=== PATIENT | male | born 1960 | race Hispanic/Latino ===

== ENCOUNTER 2018-09-02 22:07 | Emergency (ER) | payer MEDICARE ==
[2018-09-02 22:19] VITALS: BP 145/94; PULSE 77; RESP 16; TEMP 99; O2SAT 98
--- NOTE | 2018-09-02 23:08 | ED PDOC ---
HPI: Wound Care - HPI Time Seen by Provider: 09/02/18 22:50 Chief Complaint (Nursing): Abnormal Skin Integrity Chief Complaint (Provider): right leg laceration History Of Present Illness: 57 y/o male presents for evaluation of laceration sustained to back of right leg 2 hours ago. Patient states he was taking out the trash and a piece of glass poked through the bag and cut back of his leg. Patient reports localized swelling and pain to area. Denies numbness/weakness right lower extremity, limitation of movement. Last Tetanus 2009; patient states he has appt with PMD in 2 days and he will get a booster then Past Medical History Reviewed: Historical Data, Nursing Documentation, Vital Signs Vital Signs: Last Vital Signs Temp 99.0 F 09/02/18 22:15 Pulse 77 09/02/18 22:15 Resp 16 09/02/18 22:15 BP 145/94 H 09/02/18 22:15 Pulse Ox 98 09/02/18 22:15 - Medical History PMH: No Chronic Diseases - Family History Family History: States: No Known Family Hx - Living Arrangements Living Arrangements: With Family - Home Medications Home Medications: Ambulatory Orders Medication Instructions Recorded Cephalexin [Keflex] 500 mg PO Q6 #27 capsule 09/03/18 Naproxen [Naprosyn] 500 mg PO Q12 PRN #20 tablet 09/03/18 - Allergies Allergies/Adverse Reactions: Allergies Allergy/AdvReac Type Severity Reaction Status Date / Time No Known Allergies Allergy Verified 09/02/18 22:15 Review of Systems ROS Statement: Except As Marked, All Systems Reviewed And Found Negative Musculoskeletal: Positive for: Leg Pain Physical Exam - Reviewed Nursing Documentation Reviewed: Yes Vital Signs Reviewed: Yes - Physical Exam Appears: Positive for: Well, Non-toxic, No Acute Distress Head Exam: Positive for: ATRAUMATIC, NORMAL INSPECTION, NORMOCEPHALIC Skin: Positive for: Normal Color Extremity: Positive for: Normal ROM, Other (0.5cm superficial laceration posterior right leg with + surrounding swelling; soft, tender to touch. No visible or palpabe FB noted. No active bleeding. Distal NV/motor intact) Neurologic/Psych: Positive for: Alert, Oriented (x3). Negative for: Motor/Sensory Deficits - ECG O2 Sat by Pulse Oximetry: 98 - Other Rad xray right tib/fib X-Ray: Viewed By Mt X-Ray Interpretation: STS, no acute findings - Progress ED Course And Treament: xray, ibuprofen, ice application, wound care Patient educated on findings, advised RICE Rx Keflex (dose given in ED), naproxen given Advised follow up PMD within 2-3 days (has appt Friday) Return precautions given Procedure: Wound Repair - Time Performed Time Performed: 23:45 - Time Out Time Out: Side verified, Site verified, Patient ID confirmed - Consent Obtained Consent obtained: Verbal - Performed by Performed by: Mid-level Provider - Indications Indication(s):: Laceration - Debris Debris:: None - Irrigated Irrigated with ml of normal saline: 200mL - Wound repair method [place]:: Steri-strips - Muscle repiar layer closed with Muscle repair layer closed with:: Dressing applied (IZABEL wrap applied) - Patient tolerated procedure Patient Tolerated Procedure:: Well Disposition - Clinical Impression Clinical Impression: Laceration of right lower leg - Patient ED Disposition Is Patient to be Admitted: No Counseled Patient/Family Regarding: Studies Performed, Diagnosis, Need For Followup, Rx Given - Disposition Disposition: Routine/Home Disposition Time: 00:32 Condition: STABLE Prescriptions: Cephalexin [Keflex] 500 mg PO Q6 #27 capsule Naproxen [Naprosyn] 500 mg PO Q12 PRN #20 tablet PRN Reason: Pain, Moderate (4-7) Instructions: Laceration Repair, Wound Care Forms: [employer] ([place])
--- NOTE | 2018-09-03 10:50 | RAD ---
Date of service: 09/02/2018 PROCEDURE: Radiographs of the right tibia and fibula. HISTORY: puncture wound posterior aspect COMPARISON: None available TECHNIQUE: Frontal and lateral views obtained. FINDINGS: BONES: No acute fracture or destructive bony lesion identified. JOINT SPACES: Right knee arthroplasty identified with localized soft tissue edema suggested anteriorly. No retained radiodense foreign body appreciated including at the posterior right leg soft tissues at the level of the upper mid lower calf. A digital marker was not placed at the site of the patient's symptoms at the posterior mid calf level with limited reactive sub cutaneous fatty changes appreciated. No periosteal reaction is appreciated related to the visualized tibia or fibula. Nonspecific calcifications seen the popliteal fossa region. No acute fracture, subluxation or dislocation grossly appreciable. OTHER FINDINGS: None. IMPRESSION: Negative right tibia and fibula other than right knee arthroplasty. No retained radiodense foreign body appreciated within soft tissues of the leg although calcifications appear heterotopic at the popliteal fossa.
== END 2018-09-03 00:55 | disposition home or self-care (01) ==
LOC: H.ER 22:07
DX: S81.811A Laceration without foreign body, right lower leg, initial encounter (principal); W26.8XXA Contact with other sharp object(s), not elsewhere classified, initial encounter; Y92.89 Other specified places as the place of occurrence of the external cause